=== PATIENT | male | born 1985 | race Caucasian/White ===

== ENCOUNTER 2018-10-30 11:11 | Outpatient (CLI) | payer OTHER ==
--- NOTE | 2018-10-30 11:47 | XRAY Report ---
Reason: RIB PAIN, LEFT SIDED R07.81 Procedure Date: 10/30/2018 Accession Number: [id number] / [id number] Procedure: XRS - Chest 2 View X-Ray CPT Code: 93479 FULL RESULT: EXAM: CHEST RADIOGRAPHY EXAM DATE: 10/30/2018 11:23 AM. CLINICAL HISTORY: Rib pain, left sided. R07.81. The patient received a bear hug from family 6 days ago and instantly felt a pop in the mid sternum on the left side. Pain with breathing. COMPARISON: None. TECHNIQUE: 2 views. FINDINGS: Lungs/Pleura: No focal opacities evident. No pleural effusion. No pneumothorax. Normal volumes. Mediastinum: Heart and mediastinal contours are unremarkable. Other: No osseous abnormality is detected, visualization of the sternal region on lateral radiograph is essentially not helpful which is normal for chest radiography. On frontal projection there is no osseous abnormality. IMPRESSION: No definite osseous abnormality. [facility]
== END 2018-10-30 11:12 | disposition home or self-care (01) ==
LOC: DI.S 11:11
PROVIDERS: ATTEND Family Medicine
DX: R07.81 Pleurodynia (principal)
CPT/HCPCS: 71046